=== PATIENT | male | born 1980 | race Hispanic/Latino ===

== ENCOUNTER 2019-04-16 09:59 | Emergency (ER) | payer OTHER ==
[2019-04-16 10:21] LABS: BASOPHILS % (AUTO) 1.2 % (0.0-5.0); EOSINOPHILS % (AUTO) 0.6 % (0.0-8.0); HEMATOCRIT 45.5 % (42-54); LYMPHOCYTES % (AUTO) 23.6 % (21.0-51.0); MEAN CORPUSCULAR HGB CONC 34.1 g/dL (32.0-36.0); MONOCYTES % (AUTO) 10.8 % (3.0-13.0); NEUTROPHILS % (AUTO) 63.8 % (40.0-77.0); PLATELET COUNT (AUTO) 281 K/uL (130-400); RED BLOOD CELL COUNT(AUTO) 5.55 MIL/uL (4.50-6.20); RED CELL DISTRIBUTION WIDTH 12.4 % (11.0-15.5); WHITE BLOOD COUNT (AUTO) 5.9 K/uL (4.8-10.8)
[2019-04-16] MEDS ORDERED: ACETAMINOPHEN EXTRA STRENGTH 500 MG TABLET ONE (10:23)
[2019-04-16] MEDS ORDERED: SODIUM CHLORIDE 0.9% 1000ML 2,000 ML IV ONE (10:23)
[2019-04-16] MEDS ORDERED: ONDANSETRON HCL 4 MG/2 ML VIAL ONE (10:28)
[2019-04-16] MEDS ORDERED: CEFTRIAXONE SODIUM 2 GM VIAL ONE (10:28)
[2019-04-16] MEDS ORDERED: SODIUM CHLORIDE 0.9% 1000ML 1,000 ML IV ONE (10:29)
[2019-04-16 10:39] LABS: CARBON DIOXIDE 30 mmol/L (21-32); CHLORIDE 103 mmol/L (101-111); CREATININE 1.1 mg/dL (0.5-1.5); GLOMERULAR FILTR. RATE CALC 79 mL/min (>60); GLUCOSE,RANDOM 90 mg/dL (70-105); POTASSIUM 3.6 mmol/L (3.5-5.1); SODIUM SERUM 140 mmol/L (136-145); UREA NITROGEN, BLOOD 13 mg/dL (7-18)
[2019-04-16 10:42] LABS: INR 0.92 (0.85-1.15); PROTHROMBIN TIME 9.7 SEC (9.6-11.6)
[2019-04-16 10:59] LABS: ALANINE AMINOTRANSFERASE 67 U/L (12-78); ALBUMIN 3.9 g/dL (3.5-5.0); ASPARTATE AMINOTRANSFERASE 37 U/L (10-37); BILIRUBIN,TOTAL 0.5 mg/dL (0.2-1.0); CREATINE KINASE, TOTAL 85 U/L (21-232); MYOGLOBIN 57 ng/mL (10-92); TOTAL PROTEIN, SERUM 8.2 g/dL (6.0-8.3); TROPONIN I < 0.04 ng/mL (0.00-0.06)
[2019-04-16 11:40] LABS: APPEARANCE,URINE Clear (CLEAR); BILIRUBIN,URINE Negative (NEGATIVE); COLOR,URINE Yellow (YELLOW); GLUCOSE, URINE (UA) Negative (NEGATIVE); KETONES,URINE Negative (NEGATIVE); LEUKOCYTE ESTERASE ,URINE Negative (NEGATIVE); NITRATE,URINE Negative (NEGATIVE); OCCULT BLOOD,URINE Negative (NEGATIVE); PROTEIN,URINE Negative (NEGATIVE)
[2019-04-16 11:46] LABS: AMPHET/METH SCREEN,URINE NEGATIVE (NEGATIVE); BARBITURATE SCREEN, URINE NEGATIVE (NEGATIVE); BENZODIAZEPINES SCREEN,URINE NEGATIVE (NEGATIVE); CANNABINOID SCREEN,URINE NEGATIVE (NEGATIVE); COCAINE SCREEN,URINE NEGATIVE (NEGATIVE); OPIATE SCREEN,URINE NEGATIVE (NEGATIVE); PHENCYCLIDINE SCREEN,URINE NEGATIVE (NEGATIVE)
== END 2019-04-16 13:28 | disposition home or self-care (01) ==
LOC: EDH 09:59
DX: E86.0 Dehydration (principal); A75.9 Typhus fever, unspecified; Z98.890 Other specified postprocedural states
CPT/HCPCS: 36415; 71045; 80053; 80305; 81003; 82550; 83605; 83874; 84484; 85025; 85610; 85730; 87040 ×2; 87088; 87804 ×2; 93005; 96361; 96374; 96375; 99285; J0696; J2405; J7030 ×2

== ENCOUNTER 2022-12-01 14:36 | Emergency (ER) | payer OTHER ==
[~2022-12-01] VITALS: Ht 167.6 cm; Wt 108.9 kg
[2022-12-01] MEDS ORDERED: DILTIAZEM 25MG INJ IVP ONE (15:00)
[2022-12-01] MEDS ORDERED: ONDANSETRON ODT 4MG TAB SL ONE (15:00)
[2022-12-01] MEDS ORDERED: ENOXAPARIN SODIUM 100 MG/1 ML SQ ONE (15:00)
[2022-12-01] MEDS ORDERED: HYDROMORPHONE 1 MG INJ IM ONE (15:00)
[2022-12-01] MEDS ORDERED: DILTIAZEM 125 MG/25 ML INJ 125 MG in 0.9%NACL 100ML 100 ML IV SCH (15:00)
[2022-12-01] MEDS ORDERED: IBUP-2077 PO (16:16)
[2022-12-01] MEDS ORDERED: CYCL10TA16 PO (16:16)
[2022-12-01] MEDS ORDERED: OXYC-38 PO (16:16)
[2022-12-01] MEDS ORDERED: ORPHENADRINE CITRATE 30 MG/ML ML IM ONE (16:30)
[2022-12-01] MEDS ORDERED: KETOROLAC 15MG/ML VIAL (15MG/ML) IV ONE (16:30)
[2022-12-01 17:10] VITALS: BP 103/70
== END 2022-12-01 17:11 | disposition home or self-care (01) ==
LOC: EDH 14:36
DX: S39.012A Strain of muscle, fascia and tendon of lower back, initial encounter (principal); X50.1XXA Overexertion from prolonged static or awkward postures, initial encounter; Y93.89 Activity, other specified; Y92.89 Other specified places as the place of occurrence of the external cause; Y99.8 Other external cause status
CPT/HCPCS: 99284; 96374; 72110; 93005; 96372; J1885; J2360